=== PATIENT | male | born 1965 | race Caucasian/White ===

== ENCOUNTER → 2016-03-15 | Outpatient (CLI) | payer MEDICAID | LOC: RAD 15:52 | PROVIDERS: ATTEND Family Medicine | DX: R27.0 Ataxia, unspecified (principal) | CPT/HCPCS: 70553; A9577 ==

== ENCOUNTER → 2016-03-16 | Outpatient (CLI) | payer MEDICAID | LOC: RAD 09:38 | PROVIDERS: ATTEND Family Medicine | DX: M54.5 Low back pain (principal) | CPT/HCPCS: 72110 ==

== ENCOUNTER 2017-03-21 07:38 | Day surgery (SDC) | payer MEDICAID ==
[2017-03-21 08:35] LABS: INTERNATIONAL RATION (INR) 0.92
[2017-03-21 08:36] LABS: PARTIAL THROMBOPLASTIN TIME 35.5 SEC (23.5-35.8)
--- NOTE | 2017-03-21 10:57 | RADIOLOGY REPORT (SQ) ---
EXAM DESCRIPTION: LUMBAR PUNCTURE; FLUORO/NEEDLE PLACEMENT/SPINE COMPLETED DATE/TIME: 03/21/2017 10:16 am REASON FOR STUDY: MS G35 MULTIPLE SCLEROSIS COMPARISON: Lumbar spine plain films 03/16/2016 FLUOROSCOPY TIME: 29 seconds 1 digital radiographic image saved to PACS. TECHNIQUE: Fluoroscopic guided lumbar puncture. LIMITATIONS: None. PROCEDURE: After written consent and assessment were obtained, the patient was brought into the fluo roscopy room and placed prone on the table. The patient's lower back was prepped in a sterile fashio n and an entry site was selected under live fluoroscopic guidance. The entry site was anesthetized wi th 6 mL of 1% lidocaine. A 22 gauge needle was advanced through the skin and into the thecal sac at t he left paracentral L3-4 level. After approximately 10 ml was drained, the needle was removed and a sterile bandage was placed of the site. Specimens were sent to the lab for testing. A fluoroscopic spot image was saved to PACS confirming level access. FINDINGS: Lumbar puncture under fluoroscopy, left paracentral L3-4 level with a 22 gauge spinal need le. Normal opening pressure 24 cm of water. 10 mL of fluid sent for testing. IMPRESSION: Lumbar puncture under fluoroscopy. No immediate complication. COMMENT: Patient medication list reviewed: Yes- Quality ID# [id number]:Eligible professional attests to doc umenting in the medical record they obtained, updated, or reviewed the patient's current medications. . Quality ID [id number]: Final reports for procedures using fluoroscopy that document radiation exposure castillo rashawn, or exposure time and number of fluorographic images (if radiation exposure indices are not avail able) TECHNICAL DOCUMENTATION: JOB ID: [id number] [employer]- All Rights Reserved
[2017-03-21 10:58] LABS: APPEARANCE ALL TUBES CLEAR; COLOR ALL TUBES COLORLESS; CSF TUBE NUMBER 1; RED BLOOD CELL,CSF 68 /uL (0-10); WHITE BLOOD CELL,CSF 0 /uL (0-5)
[2017-03-21 11:32] LABS: GLUCOSE,CSF 84 mg/dL (40-70); PROTEIN,CSF 43 mg/dL (12-60)
[2017-03-21 12:56] VITALS: BP 141/82
[2017-03-22 15:38] LABS: ALBUMIN SERUM 4.2 g/dL (3.5-5.5); CSF IGG INDEX 0.5 (0.0-0.7); IGG SYNTHESIS RATE CSF -2.2 mg/day (-9.9 TO +3.3); IGG/ALBUMIN RATIO CSF 0.09 (0.00-0.25); IMMUNOGLOBULIN G CSF 1.4 mg/dL (0.0-8.6)
== END 2017-03-21 12:20 | disposition home or self-care (01) ==
LOC: RAD 07:38
PROVIDERS: ATTEND Specialist
PROC: 009U3ZX Drainage of Spinal Canal, Percutaneous Approach, Diagnostic (ICD-10-PCS; principal; 2017-03-21)
DX: G35 Multiple sclerosis (principal); I10 Essential (primary) hypertension; F17.210 Nicotine dependence, cigarettes, uncomplicated
CPT/HCPCS: 36415; 62270; 77003; 82784; 82945; 83916; 84157; 85610; 85730; 87070; 87205; 89050